=== PATIENT | male | born 1960 | race African-American/Black ===

== ENCOUNTER 2017-12-17 05:15 | Inpatient (IN) | payer MEDICARE, MEDICAID ==
[~2017-12-17] VITALS: Ht 185.4 cm; Wt 117.0 kg
[~2017-12-17 05:15] MED LIST: AMLO5TAB88 PO; ASPI-1079 PO; CLON0.2T PO; CLOP75TA16 PO; DIOVAN PO; HYDR-4135 PO; ISOS30TA PO; LASIX; LOSA50TA20 PO; METO50TA95 PO; NITR12SP6 TL; PLAVIX PO; PRAV20TA PO; TOPXL5 PO; VALS40TA4 PO
[2017-12-17] MEDS ORDERED: MORPHINE SULFATE 4 MG/ML CPJ (NOT FOR IM USE) IV STA (05:23)
[2017-12-17] MEDS ORDERED: ONDANSETRON HCL 4MG/2ML VIAL IV STA (05:23)
[2017-12-17] MEDS ORDERED: ASPIRIN 325MG EC TABLET PO ONE (05:30)
[2017-12-17] MEDS ORDERED: NITROGLYCERIN OINT 1GM/INCH UDPKT TD ONE (05:30)
[2017-12-17 05:42] LABS: BASOPHILS % 1.1 % (0.0-2.0); EOSINOPHILS % 0.5 % (0.0-5.0); HEMATOCRIT. 31.9 % (42.0-52.0); HEMOGLOBIN. 11.2 g/dL (14.0-18.0); LYMPHOCYTES % 27.6 % (20.0-50.0); MEAN CORPUSCULAR HEMOGLOBIN 30.9 pg (28.0-32.0); MEAN CORPUSCULAR VOLUME 88.1 fL (80.0-94.0); MEAN PLATELET VOLUME 8.2 fl (7.4-10.4); MONOCYTES % 7.2 % (2.0-8.0); NEUTROPHILS % 63.6 % (40.0-76.0); PLATELET 231 x1000/uL (130-400); RED BLOOD CELL COUNT 3.62 mill/uL (4.7-6.1); RED CELL DISTRIBUTION WIDTH 15.2 % (11.6-14.6)
[2017-12-17 05:47] LABS: CHLORIDE 102 mEq/L (98-107)
[2017-12-17 05:51] LABS: ETHANOL BLOOD < 10 mg/dL
[2017-12-17 05:55] LABS: D-DIMER 0.96 mg/L FEU (<0.50); INR 1.1; PARTIAL THROMBOPLASTIN TIME 26.7 sec (23.4-31.0); PROTHROMBIN TIME 11.6 sec (9.4-11.6)
[2017-12-17 06:19] LABS: CLARITY URINE CLEAR (CLEAR); COLOR URINE YELLOW (YELLOW); KETONES URINE NEGATIVE (NEGATIVE); LEUKOCYTE ESTERASE URINE NEGATIVE (NEGATIVE); NITRITE URINE NEGATIVE (NEGATIVE); OCCULT BLOOD URINE NEGATIVE (NEGATIVE); PH URINE 5.5 (4.5-8.0); PROTEIN URINE NEGATIVE (NEGATIVE); SPECIFIC GRAVITY URINE 1.015 (1.005-1.030)
[2017-12-17 06:30] LABS: *AMPHETAMINES SCREEN URINE NEGATIVE (NEGATIVE); *BARBITURATES SCREEN URINE NEGATIVE (NEGATIVE); *BENZODIAZEPINES SCREEN URINE NEGATIVE (NEGATIVE); *COCAINE SCREEN URINE NEGATIVE (NEGATIVE); METHADONE URINE SCREEN NEGATIVE (NEGATIVE)
[2017-12-17 06:31] LABS: CANNABINOID URINE SCREEN PRESUMTIVE POSITIVE (NEGATIVE); OPIATES URINE SCREEN PRESUMTIVE POSITIVE (NEGATIVE); PHENCYCLIDINE URINE SCREEN NEGATIVE (NEGATIVE)
[2017-12-17 08:00] VITALS: BP 161/85
[2017-12-17] MEDS ORDERED: AMLO5TAB88 PO (08:29)
[2017-12-17] MEDS ORDERED: FURO-152 PO (08:29)
[2017-12-17] MEDS ORDERED: METO-539 PO (08:29)
[2017-12-17] MEDS ORDERED: FURO-151 PO (08:29)
[2017-12-17] MEDS ORDERED: ATOR40TA70 PO (08:29)
[2017-12-17] MEDS ORDERED: POTA10CA42 PO (08:29)
[2017-12-17] MEDS ORDERED: LISI40TA4 PO (08:29)
[2017-12-17] MEDS ORDERED: MAGNESIUM/ALUMINUM HYDROXIDE/SIMETHICONE 30ML UDC PO PRN (11:00)
[2017-12-17] MEDS ORDERED: ENOXAPARIN 40MG/0.4ML SYR SUBCUT SCH (11:00)
[2017-12-17] MEDS ORDERED: CLONIDINE 0.1MG TABLET PO PRN (11:00)
[2017-12-17] MEDS ORDERED: CLONIDINE 0.2MG TABLET PO SCH (11:00)
[2017-12-17] MEDS ORDERED: DIPHENHYDRAMINE 50MG/ML VIAL IV PRN (11:00)
[2017-12-17] MEDS ORDERED: ACETAMINOPHEN 325MG TABLET PO PRN (11:00)
[2017-12-17 11:30] VITALS: BP 161/85
[2017-12-17] MEDS ORDERED: METOPROLOL TARTRATE 25MG TABLET PO SCH (11:30)
[2017-12-17 12:00] VITALS: BP 136/75
[2017-12-17] MEDS: ONDANSETRON HCL 4MG/2ML VIAL IV PRN ×2 (12:19→16:36)
[2017-12-17] MEDS: CLOPIDOGREL 75MG TABLET PO SCH (12:20)
[2017-12-17] MEDS: LISINOPRIL 40MG TABLET PO SCH ×2 (12:21→20:35)
[2017-12-17] MEDS: AMLODIPINE 5MG TABLET PO SCH (12:21)
[2017-12-17] MEDS: ENOXAPARIN 30MG/0.3ML SYR SUBCUT SCH ×2 (12:22→20:36)
[2017-12-17] MEDS ORDERED: POTASSIUM CHLORIDE 20MEQ TABLET SR PO NR (15:57)
[2017-12-17 16:00] VITALS: BP 118/77
[2017-12-17] MEDS: CLONIDINE 0.2MG TABLET PO SCH ×2 (16:28→22:00)
[2017-12-17] MEDS: SODIUM CHLORIDE 0.9% INJ 3ML FLUSH IVF SCH ×2 (16:37→22:24)
[2017-12-17] MEDS: ATORVASTATIN CALCIUM 40MG TABLET PO SCH (20:35)
[2017-12-17] MEDS: METOPROLOL TARTRATE 50MG TABLET PO SCH (20:36)
[2017-12-17] MEDS ORDERED: OMEPRAZOLE 20MG CAPSULE EXTENDED RELEASE PO SCH (21:00)
[2017-12-17 21:52] LABS: HEMATOCRIT 26.7 % (42.0-52.0); HEMOGLOBIN 9.3 g/dL (14.0-18.0)
[2017-12-17 22:19] VITALS: BP 96/55
[2017-12-18] VITALS: BP 104/63
[2017-12-18 04:00] VITALS: BP 111/74
[2017-12-18] MEDS: CLONIDINE 0.2MG TABLET PO SCH ×3 (06:39→21:15)
[2017-12-18] MEDS: SODIUM CHLORIDE 0.9% INJ 3ML FLUSH IVF SCH ×3 (06:39→21:17)
[2017-12-18 06:57] LABS: CHLORIDE 104 mEq/L (98-107)
[2017-12-18 07:00] LABS: BASOPHILS % 0.8 % (0.0-2.0); EOSINOPHILS % 2.1 % (0.0-5.0); HEMATOCRIT. 28.4 % (42.0-52.0); HEMOGLOBIN. 9.7 g/dL (14.0-18.0); LYMPHOCYTES % 39.5 % (20.0-50.0); MEAN CORPUSCULAR VOLUME 90.4 fL (80.0-94.0); MEAN PLATELET VOLUME 8.7 fl (7.4-10.4); MONOCYTES % 7.9 % (2.0-8.0); NEUTROPHILS % 49.7 % (40.0-76.0); PLATELET 203 x1000/uL (130-400); RED BLOOD CELL COUNT 3.14 mill/uL (4.7-6.1); RED CELL DISTRIBUTION WIDTH 15.1 % (11.6-14.6)
[2017-12-18 07:06] LABS: LDL CHOLESTEROL 74 mg/dL (5-100)
[2017-12-18 07:08] LABS: HDL CHOLESTEROL 34 mg/dL (40-59)
[2017-12-18 07:09] LABS: TOTAL IRON BINDING CAPACITY 202 ug/dL (250-450)
[2017-12-18 07:13] LABS: FOLIC ACID (FOLATE) SERUM 4.6 ng/mL (>5.38)
[2017-12-18 08:00] VITALS: BP 97/56
[2017-12-18] MEDS ORDERED: PANTOPRAZOLE SODIUM 40 MG/VIAL IV SCH (09:00)
[2017-12-18] MEDS: CLOPIDOGREL 75MG TABLET PO SCH (09:00)
[2017-12-18] MEDS: METOPROLOL TARTRATE 50MG TABLET PO SCH ×2 (09:00→21:14)
[2017-12-18] MEDS: LISINOPRIL 40MG TABLET PO SCH ×2 (09:00→21:14)
[2017-12-18] MEDS: ENOXAPARIN 30MG/0.3ML SYR SUBCUT SCH ×3 (09:00→21:18)
[2017-12-18] MEDS: AMLODIPINE 5MG TABLET PO SCH (09:00)
[2017-12-18] MEDS: ASPIRIN 81MG EC TABLET PO SCH (09:00)
[2017-12-18] MEDS ORDERED: CYANOCOBALAMIN 1000MCG/ML VIAL IM NR (09:34)
[2017-12-18] MEDS: PANTOPRAZOLE SODIUM 40 MG/VIAL IV SCH ×2 (09:44→21:11)
[2017-12-18 12:13] VITALS: BP 111/72
[2017-12-18 13:38] LABS: HEMATOCRIT 27.9 % (42.0-52.0); HEMOGLOBIN 9.6 g/dL (14.0-18.0)
[2017-12-18 16:04] VITALS: BP 109/61
[2017-12-18 19:46] LABS: HEMATOCRIT 29.7 % (42.0-52.0); HEMOGLOBIN 10.1 g/dL (14.0-18.0)
[2017-12-18 20:00] VITALS: BP 113/68
[2017-12-18] MEDS ORDERED: BISACODYL 5MG TABLET PO PRN (21:00)
[2017-12-18] MEDS: ATORVASTATIN CALCIUM 40MG TABLET PO SCH (21:11)
[2017-12-18] MEDS: DOCUSATE SODIUM 100MG CAPSULE PO SCH (21:11)
[2017-12-19] VITALS: BP 100/62
[2017-12-19 04:00] VITALS: BP 111/70
[2017-12-19] MEDS: CLONIDINE 0.2MG TABLET PO SCH ×3 (06:00→14:00)
[2017-12-19] MEDS: SODIUM CHLORIDE 0.9% INJ 3ML FLUSH IVF SCH (06:45)
[2017-12-19 06:55] LABS: INR 1.1; PARTIAL THROMBOPLASTIN TIME 27.1 sec (23.4-31.0); PROTHROMBIN TIME 11.3 sec (9.4-11.6)
[2017-12-19 07:01] LABS: CHLORIDE 104 mEq/L (98-107)
[2017-12-19 07:49] LABS: BASOPHILS % 0.7 % (0.0-2.0); EOSINOPHILS % 2.4 % (0.0-5.0); HEMATOCRIT. 27.2 % (42.0-52.0); HEMOGLOBIN. 9.5 g/dL (14.0-18.0); LYMPHOCYTES % 47.1 % (20.0-50.0); MEAN CORPUSCULAR HEMOGLOBIN 31.4 pg (28.0-32.0); MEAN CORPUSCULAR VOLUME 90.1 fL (80.0-94.0); NEUTROPHILS % 42.8 % (40.0-76.0); PLATELET 191 x1000/uL (130-400); RED BLOOD CELL COUNT 3.01 mill/uL (4.7-6.1); RED CELL DISTRIBUTION WIDTH 15.3 % (11.6-14.6)
[2017-12-19 08:00] VITALS: BP 115/69
[2017-12-19] MEDS: ASPIRIN 81MG EC TABLET PO SCH (08:35)
[2017-12-19] MEDS: AMLODIPINE 5MG TABLET PO SCH (08:35)
[2017-12-19] MEDS: DOCUSATE SODIUM 100MG CAPSULE PO SCH (08:35)
[2017-12-19] MEDS: METOPROLOL TARTRATE 50MG TABLET PO SCH (08:35)
[2017-12-19] MEDS: CLOPIDOGREL 75MG TABLET PO SCH (08:35)
[2017-12-19] MEDS: ENOXAPARIN 30MG/0.3ML SYR SUBCUT SCH (08:35)
[2017-12-19] MEDS: LISINOPRIL 40MG TABLET PO SCH (08:35)
[2017-12-19] MEDS: PANTOPRAZOLE SODIUM 40 MG/VIAL IV SCH (09:13)
[2017-12-19] MEDS ORDERED: SODIUM CHLORIDE 0.9% 10ML VIAL ONE (12:09)
[2017-12-19] MEDS ORDERED: SIMETHICONE 40 MG/0.6 ML 30ML ONE (12:55)
[2017-12-19] MEDS ORDERED: DIPHENHYDRAMINE 50MG/ML VIAL ONE (12:55)
[2017-12-19] MEDS ORDERED: MIDAZOLAM HCL 5 MG/5 ML VIAL ONE (12:55)
[2017-12-19] MEDS ORDERED: FENTANYL CITRATE/PF 50MCG/ML 2ML VIAL ONE (12:56)
[2017-12-19] MEDS ORDERED: MIDAZOLAM HCL 5 MG/5 ML VIAL IV PRN (12:57)
[2017-12-19] MEDS ORDERED: FENTANYL CITRATE/PF 50MCG/ML 2ML VIAL IV PRN (12:58)
[2017-12-19] MEDS ORDERED: DIPHENHYDRAMINE 50MG/ML VIAL IV PRN (13:05)
[2017-12-19 16:20] VITALS: BP 113/68
[2017-12-19] MEDS ORDERED: SUCRALFATE 1G TABLET PO SCH (16:45)
== END 2017-12-19 17:14 | disposition home or self-care (01) | DRG 291 ==
LOC: ER 05:15 → 5WST 07:03 → EDBEDREQ 07:09 → EDBEDREQTM 07:09 → ENRESERV 07:27
PROVIDERS: ADMIT Internal Medicine; ATTEND Internal Medicine
PROC: 0DB68ZX Excision of Stomach, Via Natural or Artificial Opening Endoscopic, Diagnostic (ICD-10-PCS; principal; 2017-12-19 10:00)
DX: I11.0 Hypertensive heart disease with heart failure (principal); K29.71 Gastritis, unspecified, with bleeding; K25.4 Chronic or unspecified gastric ulcer with hemorrhage; K29.81 Duodenitis with bleeding; K22.9 Disease of esophagus, unspecified; R13.10 Dysphagia, unspecified; R19.5 Other fecal abnormalities; I25.10 Atherosclerotic heart disease of native coronary artery without angina pectoris; I73.9 Peripheral vascular disease, unspecified; E66.01 Morbid (severe) obesity due to excess calories; E78.5 Hyperlipidemia, unspecified; D64.9 Anemia, unspecified; I50.9 Heart failure, unspecified; Z79.82 Long term (current) use of aspirin; Z95.5 Presence of coronary angioplasty implant and graft; Z79.899 Other long term (current) drug therapy; I69.30 Unspecified sequelae of cerebral infarction; Z88.8 Allergy status to other drugs, medicaments and biological substances; Z68.34 Body mass index [BMI] 34.0-34.9, adult
CPT/HCPCS: 36415; 70551; 71045; 80048; 80053; 80061; 80305; 81003; 82607; 82728; 82746; 83540; 83550; 83690; 83735; 83880; 84484; 85014; 85018; 85025; 85379; 85610; 85730; 86850; 86900; 88305; 88312; 88313; 92610; 93005; 93306; 93880; 96374; 96375; 97116; 97162; 99285; A4216; C9113; G0482; J1200; J1650; J2250; J2270; J2405; J3010; J3420

== ENCOUNTER 2018-01-15 07:54 | Day surgery (SDC) | payer MEDICARE, MEDICAID ==
[~2018-01-15] VITALS: Ht 185.4 cm; Wt 115.7 kg
[~2018-01-15 07:54] MED LIST changes: +ATOR40TA70 PO; -DIOVAN PO; +FURO-151 PO; -HYDR-4135 PO; -ISOS30TA PO; -LASIX; +LISI40TA4 PO; -LOSA50TA20 PO; +METO-539 PO; -METO50TA95 PO; -NITR12SP6 TL; -PLAVIX PO; +POTA10CA42 PO; -PRAV20TA PO; -TOPXL5 PO; -VALS40TA4 PO
[2018-01-15] MEDS ORDERED: IOHEXOL-300 100 ML BOTTLE ONE (08:52)
[2018-01-15] MEDS ORDERED: LIDOCAINE HCL 1% 10 MG/ML 10ML VIAL ONE (08:53)
[2018-01-15] MEDS ORDERED: MIDAZOLAM HCL 2 MG/2 ML VIAL ONE (09:36)
[2018-01-15] MEDS ORDERED: FENTANYL CITRATE/PF 50MCG/ML 2ML VIAL ONE (09:37)
== END 2018-01-15 14:00 | disposition home or self-care (01) ==
LOC: CCL 07:54
PROVIDERS: ATTEND Specialist
DX: I25.10 Atherosclerotic heart disease of native coronary artery without angina pectoris (principal); Z79.899 Other long term (current) drug therapy; Z79.82 Long term (current) use of aspirin; Z88.8 Allergy status to other drugs, medicaments and biological substances; D64.9 Anemia, unspecified; I11.0 Hypertensive heart disease with heart failure; I50.9 Heart failure, unspecified; E78.5 Hyperlipidemia, unspecified; E66.01 Morbid (severe) obesity due to excess calories; Z68.34 Body mass index [BMI] 34.0-34.9, adult; Z95.1 Presence of aortocoronary bypass graft
CPT/HCPCS: 93458; C1760; C1769; C1887; C1893; J1644; J2250; J3010; J3490; Q9967; 99152

== ENCOUNTER 2022-05-11 08:13 | Emergency (ER) | payer MEDICARE, MEDICAID ==
[~2022-05-11] VITALS: Ht 185.4 cm; Wt 106.0 kg
[~2022-05-11 08:13] MED LIST changes: -CLOP75TA16 PO; +LISI40TA13 PO; -LISI40TA4 PO
[2022-05-11 08:17] VITALS: BP 210/89
[2022-05-11] MEDS ORDERED: HYDR30CR80 TP (08:55)
== END 2022-05-11 09:17 | disposition home or self-care (01) ==
LOC: ER 08:13
DX: K64.4 Residual hemorrhoidal skin tags (principal); K62.5 Hemorrhage of anus and rectum; I11.0 Hypertensive heart disease with heart failure; I50.9 Heart failure, unspecified; Z86.73 Personal history of transient ischemic attack (TIA), and cerebral infarction without residual deficits; Z88.6 Allergy status to analgesic agent
CPT/HCPCS: 99283

== ENCOUNTER 2024-01-21 16:16 | Inpatient (IN) | payer MEDICARE, MEDICAID ==
[~2024-01-21] VITALS: Ht 185.4 cm; Wt 112.5 kg
[~2024-01-21 16:16] MED LIST changes: +HYDR30CR80 TP; -POTA10CA42 PO; +POTA10CA93 PO
[2024-01-21 16:19] VITALS: O2SAT 97
[2024-01-21] MEDS: ONDANSETRON HCL 4MG/2ML INJ IV ONE (16:30)
[2024-01-21] MEDS: SODIUM CHLORIDE 0.9% 1,000 ML IV ONE (17:34)
[2024-01-21 17:51] LABS: BASOPHILS % 0.4 % (0.0-2.0); CHLORIDE 99 mEq/L (98-107); EOSINOPHILS % 0.2 % (0.0-5.0); HEMATOCRIT. 46.3 % (42.0-52.0); HEMOGLOBIN. 15.6 g/dL (14.0-18.0); LYMPHOCYTES % 23.7 % (20.0-50.0); MEAN CORPUSCULAR HEMOGLOBIN 31.9 pg (28.0-32.0); MEAN CORPUSCULAR HGB CONC 33.6 g/dL (31.0-37.0); MEAN CORPUSCULAR VOLUME 94.9 fL (80.0-94.0); MEAN PLATELET VOLUME 8.8 fl (7.4-10.4); MONOCYTES % 9.5 % (2.0-8.0); NEUTROPHILS % 66.2 % (40.0-76.0); PLATELET 221 x1000/uL (130-400); POTASSIUM 3.3 mEq/L (3.5-5.1); RED BLOOD CELL COUNT 4.87 mill/uL (4.7-6.1); RED CELL DISTRIBUTION WIDTH 14.9 % (11.6-14.6); SODIUM 133 mEq/L (136-145); WHITE BLOOD COUNT 10.7 x1000/uL (4.5-11.0)
[2024-01-21 17:52] LABS: CARBON DIOXIDE 25 mEq/L (21-32)
[2024-01-21 17:53] LABS: CALCIUM 9.3 mg/dL (8.7-10.4)
[2024-01-21 17:57] LABS: CREATININE 1.8 mg/dL (0.6-1.3); GLUCOSE 130 mg/dL (70-105); INR 1.1; PROTHROMBIN TIME 11.9 sec (9.6-11.0)
[2024-01-21 17:58] LABS: UREA NITROGEN BLOOD 14 mg/dL (9-23)
[2024-01-21 17:59] LABS: ALANINE AMINOTRANSFERASE 97 IU/L (10-49); ALBUMIN 4.4 g/dL (3.2-4.8); ASPARTATE AMINOTRANSFERASE 114 IU/L (<34); LACTIC ACID 3.6 mmol/L (0.4-2.0)
[2024-01-21 18:00] LABS: BILIRUBIN TOTAL 1.4 mg/dL (0.1-1.0); PROTEIN TOTAL 7.5 g/dL (6.0-8.3)
[2024-01-21 18:01] LABS: TROPONIN I HIGH SENSITIVITY 11826 ng/L (3.0-53)
[2024-01-21] MEDS ORDERED: HEPARIN 25,000 UNITS PREMIX 250 ML IV SCH (18:45)
[2024-01-21] MEDS ORDERED: HEPARIN 5000 UNITS/ML VIAL IV ONE (18:45)
[2024-01-21] MEDS ORDERED: HEPARIN BOLUS PRN aPTT <30 IV (19:00)
[2024-01-21] MEDS: ASPIRIN 325MG TABLET PO ONE (19:29)
[2024-01-21 20:34] LABS: TROPONIN I HIGH SENSITIVITY 11040 ng/L (3.0-53)
[2024-01-21] MEDS: HEPARIN 25,000 UNITS PREMIX 250 ML IV SCH (21:23)
[2024-01-21] MEDS: HEPARIN 60 UNITS/KG BOLUS IV NR (21:23)
[2024-01-21] MEDS ORDERED: GUAIFENESIN 200MG/10ML SUGAR FREE UDC PO PRN (22:15)
[2024-01-21] MEDS ORDERED: ACETAMINOPHEN 325MG TABLET PO PRN ×2 (22:15)
[2024-01-21] MEDS ORDERED: IPRATROPIUM/ALBUTEROL 0.5-3(2.5)MG/3ML NEB HHN PRN (22:15)
[2024-01-21] MEDS ORDERED: ONDANSETRON HCL 4MG/2ML INJ IV PRN (22:15)
[2024-01-21] MEDS ORDERED: CLONIDINE 0.1MG TABLET PO PRN (22:15)
[2024-01-21] MEDS ORDERED: DOCUSATE SODIUM 100MG CAPSULE PO PRN (22:15)
[2024-01-21] MEDS ORDERED: LORAZEPAM 0.5MG TABLET PO PRN (22:15)
[2024-01-21 22:57] LABS: THYROID STIMULATING HORMONE 2.85 uIU/mL (0.55-4.78)
[2024-01-22] MEDS: POTASSIUM CHLORIDE 20MEQ TABLET SR PO NR (01:31)
[2024-01-22 03:23] LABS: HEMOGLOBIN 14.6 g/dL (14.0-18.0); MEAN CORPUSCULAR HEMOGLOBIN 30.8 pg (28.0-32.0); MEAN CORPUSCULAR HGB CONC 33.2 g/dL (31.0-37.0); MEAN CORPUSCULAR VOLUME 92.9 fL (80.0-94.0); PLATELET 203 x1000/uL (130-400); RED BLOOD CELL COUNT 4.74 mill/uL (4.7-6.1); RED CELL DISTRIBUTION WIDTH 14.8 % (11.6-14.6); WHITE BLOOD COUNT 11.4 x1000/uL (4.5-11.0)
[2024-01-22 03:36] LABS: CHLORIDE 100 mEq/L (98-107); POTASSIUM 3.6 mEq/L (3.5-5.1); SODIUM 135 mEq/L (136-145)
[2024-01-22 03:37] LABS: CALCIUM 8.8 mg/dL (8.7-10.4); CARBON DIOXIDE 28 mEq/L (21-32)
[2024-01-22 03:42] LABS: CREATINE KINASE MB FRACTION 25.3 ng/mL (0.5-3.6); GLUCOSE 114 mg/dL (70-105); UREA NITROGEN BLOOD 23 mg/dL (9-23)
[2024-01-22 03:44] LABS: CREATINE KINASE 533 IU/L (46-171); PHOSPHORUS 3.3 mg/dL (2.5-4.9)
[2024-01-22 03:51] LABS: TROPONIN I HIGH SENSITIVITY 10538 ng/L (3.0-53)
[2024-01-22] MEDS: HEPARIN BOLUS PRN aPTT 30-44 IV (05:39)
[2024-01-22 05:47] LABS: CREATININE 1.7 mg/dL (0.6-1.3)
[2024-01-22] MEDS: LISINOPRIL 40MG TABLET PO SCH (09:00)
[2024-01-22] MEDS ORDERED: MEDICATION NOT ON FORMULARY EA (Potassium Chloride 1 CAP) PO SCH (09:00)
[2024-01-22] MEDS: POTASSIUM CHLORIDE 10MEQ TABLET SR PO SCH (09:09)
[2024-01-22] MEDS: ASPIRIN 81MG TABLET PO SCH (09:09)
[2024-01-22] MEDS: ATORVASTATIN CALCIUM 40MG TABLET PO SCH (09:10)
[2024-01-22] MEDS: METOPROLOL TARTRATE 50MG TABLET PO SCH (09:10)
[2024-01-22] MEDS: AMLODIPINE 5MG TABLET PO SCH (09:11)
[2024-01-22] MEDS: FUROSEMIDE 40MG TABLET PO SCH (09:13)
[2024-01-22] MEDS: SODIUM CHLORIDE 0.9% 1,000 ML IV SCH (12:04)
[2024-01-22 16:00] VITALS: BP_SYST 130; BP_SYST 165; BP_DIAS 115; BP_DIAS 93; PULSE 73; PULSE 88; RESP 16; RESP 19; TEMP 36.05844; TEMP 36.61404; O2SAT 96; O2SAT 97
[2024-01-22 17:09] LABS: CREATINE KINASE MB FRACTION 14.7 ng/mL (0.5-3.6)
[2024-01-22 18:00] VITALS: BP 130/93; PULSE 73; RESP 16; TEMP 36.0844
[2024-01-22] MEDS: HEPARIN 25,000 UNITS PREMIX 250 ML IV SCH (19:30)
[2024-01-22 20:00] VITALS: BP 138/70; PULSE 75; RESP 18; TEMP 36.61404; O2SAT 99
[2024-01-23] VITALS: BP 157/89; PULSE 66; RESP 19; TEMP 36.61404; O2SAT 100
[2024-01-23 04:00] VITALS: BP 149/89; PULSE 75; RESP 19; TEMP 36.55848; O2SAT 98
[2024-01-23 04:37] LABS: CHLORIDE 102 mEq/L (98-107); POTASSIUM 3.3 mEq/L (3.5-5.1); SODIUM 135 mEq/L (136-145)
[2024-01-23 04:38] LABS: CARBON DIOXIDE 28 mEq/L (21-32)
[2024-01-23 04:39] LABS: CALCIUM 8.9 mg/dL (8.7-10.4)
[2024-01-23 04:44] LABS: CREATININE 1.3 mg/dL (0.6-1.3); GLUCOSE 115 mg/dL (70-105); UREA NITROGEN BLOOD 19 mg/dL (9-23)
[2024-01-23 06:13] LABS: BASOPHILS % 0.5 % (0.0-2.0); EOSINOPHILS % 0.5 % (0.0-5.0); HEMATOCRIT. 40.5 % (42.0-52.0); HEMOGLOBIN. 13.7 g/dL (14.0-18.0); LYMPHOCYTES % 44.8 % (20.0-50.0); MEAN CORPUSCULAR HEMOGLOBIN 31.7 pg (28.0-32.0); MEAN CORPUSCULAR VOLUME 93.2 fL (80.0-94.0); MEAN PLATELET VOLUME 9.3 fl (7.4-10.4); MONOCYTES % 8.3 % (2.0-8.0); NEUTROPHILS % 45.9 % (40.0-76.0); PLATELET 197 x1000/uL (130-400); RED BLOOD CELL COUNT 4.34 mill/uL (4.7-6.1); RED CELL DISTRIBUTION WIDTH 14.7 % (11.6-14.6); WHITE BLOOD COUNT 8.6 x1000/uL (4.5-11.0)
[2024-01-23 08:00] VITALS: BP 180/105; PULSE 82; RESP 20; TEMP 36.6696; O2SAT 98
[2024-01-23] MEDS: CLONIDINE 0.2MG TABLET PO SCH (09:00)
[2024-01-23] MEDS ORDERED: LIDOCAINE HCL 1% 10 MG/ML 10ML VIAL ONE (11:45)
[2024-01-23] MEDS ORDERED: HEPARIN 1000 UNITS/ML 10ML ONE (11:45)
[2024-01-23] MEDS ORDERED: IODIXANOL 320MG/ML 100 ML BOTTLE IV ONE (11:46)
[2024-01-23 12:00] VITALS: BP 176/87; PULSE 60; RESP 20; TEMP 36.6696; O2SAT 95
[2024-01-23] MEDS ORDERED: FENTANYL CITRATE/PF 50MCG/ML 2ML VIAL ONE (12:10)
[2024-01-23] MEDS ORDERED: MIDAZOLAM HCL 2 MG/2 ML VIAL ONE (12:10)
[2024-01-23] MEDS ORDERED: ATROPINE SULFATE 1MG/10ML SYR IV PRN (13:00)
[2024-01-23] MEDS ORDERED: ACETAMINOPHEN 325MG TABLET PO PRN (13:00)
[2024-01-23] MEDS ORDERED: HYDRALAZINE 20MG/ML VIAL ONE (13:04)
[2024-01-23] MEDS: AMLODIPINE 10MG TABLET PO SCH (14:21)
[2024-01-23] MEDS: ENALAPRIL 1.25MG/ML VIAL 1ML IV NR (15:05)
[2024-01-23] MEDS: HYDRALAZINE 20MG/ML VIAL IV PRN (16:39)
[2024-01-23 20:00] VITALS: BP 168/81; PULSE 80; RESP 20; TEMP 37.89192
[2024-01-23] MEDS: ATORVASTATIN CALCIUM 40MG TABLET PO SCH (20:40)
[2024-01-24] VITALS: BP 154/84; PULSE 69; RESP 20; TEMP 37.00296
[2024-01-24 04:00] VITALS: BP 153/80; PULSE 79; RESP 18; TEMP 37.00296
[2024-01-24 06:29] LABS: BASOPHILS % 0.4 % (0.0-2.0); EOSINOPHILS % 0.8 % (0.0-5.0); HEMATOCRIT. 38.8 % (42.0-52.0); HEMOGLOBIN. 13.3 g/dL (14.0-18.0); LYMPHOCYTES % 38.1 % (20.0-50.0); MEAN CORPUSCULAR HEMOGLOBIN 31.9 pg (28.0-32.0); MEAN CORPUSCULAR HGB CONC 34.3 g/dL (31.0-37.0); MEAN CORPUSCULAR VOLUME 92.9 fL (80.0-94.0); MEAN PLATELET VOLUME 8.8 fl (7.4-10.4); MONOCYTES % 9.9 % (2.0-8.0); NEUTROPHILS % 50.8 % (40.0-76.0); PLATELET 211 x1000/uL (130-400); RED BLOOD CELL COUNT 4.17 mill/uL (4.7-6.1); RED CELL DISTRIBUTION WIDTH 14.4 % (11.6-14.6); WHITE BLOOD COUNT 8.7 x1000/uL (4.5-11.0)
[2024-01-24 06:39] LABS: CALCIUM 8.9 mg/dL (8.7-10.4); CARBON DIOXIDE 28 mEq/L (21-32); CHLORIDE 102 mEq/L (98-107); POTASSIUM 3.6 mEq/L (3.5-5.1); SODIUM 135 mEq/L (136-145)
[2024-01-24 06:45] LABS: CREATININE 1.2 mg/dL (0.6-1.3); GLUCOSE 102 mg/dL (70-105); UREA NITROGEN BLOOD 14 mg/dL (9-23)
[2024-01-24 07:51] LABS: TROPONIN I HIGH SENSITIVITY 3154 ng/L (3.0-53)
[2024-01-24 08:00] VITALS: BP 118/71; PULSE 61; RESP 19; TEMP 36.114; O2SAT 98
[2024-01-24] MEDS: CLOPIDOGREL 75MG TABLET PO SCH (08:40)
[2024-01-24] MEDS ORDERED: AMLODIPINE 5MG TABLET PO SCH (09:00)
[2024-01-24 12:00] VITALS: BP 108/61; PULSE 67; RESP 15; TEMP 36.05844; O2SAT 96
[2024-01-24] MEDS ORDERED: CLON0.2T PO (14:05)
[2024-01-24] MEDS ORDERED: ASPI-1079 PO (14:05)
[2024-01-24] MEDS ORDERED: ATOR40TA70 PO (14:05)
[2024-01-24] MEDS ORDERED: CLOP-31 PO (14:05)
[2024-01-24 16:00] VITALS: BP 128/74; PULSE 67; RESP 18; TEMP 36.05844; O2SAT 100
== END 2024-01-24 19:53 | disposition home health service (06) | DRG 280 ==
LOC: ER 16:29 → 5WST 20:16 → EDBEDREQSVC 20:47 → EDBEDREQTM 20:47 → EDBEDREQ 20:47 → EDBEDREQTM 23:01 → EDBEDREQSVC 23:01 → 7EST 01-22 15:00
PROVIDERS: ADMIT Internal Medicine; ATTEND Internal Medicine
PROC: 4A023N7 Measurement of Cardiac Sampling and Pressure, Left Heart, Percutaneous Approach (ICD-10-PCS; principal; 2024-01-23)
PROC: B211YZZ Fluoroscopy of Multiple Coronary Arteries using Other Contrast (ICD-10-PCS; 2024-01-23)
DX: I21.4 Non-ST elevation (NSTEMI) myocardial infarction (principal); N17.0 Acute kidney failure with tubular necrosis; E87.1 Hypo-osmolality and hyponatremia; E87.6 Hypokalemia; R74.01 Elevation of levels of liver transaminase levels; E66.9 Obesity, unspecified; I10 Essential (primary) hypertension; E78.5 Hyperlipidemia, unspecified; Z68.32 Body mass index [BMI] 32.0-32.9, adult; E80.6 Other disorders of bilirubin metabolism; E11.51 Type 2 diabetes mellitus with diabetic peripheral angiopathy without gangrene; I25.10 Atherosclerotic heart disease of native coronary artery without angina pectoris; Z95.5 Presence of coronary angioplasty implant and graft; Z79.899 Other long term (current) drug therapy; Z88.6 Allergy status to analgesic agent
CPT/HCPCS: 36415; 71045; 74176; 76770; 80048; 80053; 80061; 82550; 82553; 83036; 83605; 83735; 83880; 84100; 84443; 84484; 85025; 85027; 86850; 86900; 93005; 93306; 93454; 93970; 99291; C1769; C1887; C1893; J0360; J1644; J2250; J2405; J3010; J3490; J7030; Q9967